=== PATIENT | female | born 1935 | race Caucasian/White ===

== ENCOUNTER 2019-01-19 21:08 | Inpatient (IN) | payer MEDICARE ==
[2019-01-19 21:23] LABS: Hemoglobin 14.3 g/dL (12.0-16.0); Mean Corpuscular HGB CONC 33.8 g/dL (32.0-36.0); Mean Corpuscular Hemoglobin 29.9 pg (27.0-31.0); Mean Corpuscular Volume 88.5 fL (78.0-98.0); Mean Platelet Volume 7.6 fL (7.4-10.4); Platelet Count 322 thou/uL (130-400); RBC Distribution Width 11.5 % (11.5-14.5); Red Blood Cell (RBC) Count 4.79 mill/uL (4.20-5.40); White Blood Cell (WBC) Count 16.8 thou/uL (4.8-10.8)
[2019-01-19] MEDS ORDERED: Adacel (T-DAP) 0.5 ML SYRINGE ONE (21:23)
[2019-01-19 21:28] LABS: PTT 26.1 SEC (22.9-36.1); Prothrombin Time 13.2 SEC (12.0-14.7)
--- NOTE | 2019-01-19 21:35 | CT ---
EXAM: Brain CT scan Without contrast: HISTORY: Injury from trauma COMPARISON: None FINDINGS: Atrophy and chronic white matter ischemic change. No focal mass or midline shift. No intra or extra-axial hemorrhage. The visualized sinuses and mastoids are clear of acute process. IMPRESSION: No mass or bleed or other significant acute intracranial process.
[2019-01-19 21:37] LABS: ALT (SGPT) 17 U/L (8-55); AST (SGOT) 17 U/L (5-34); Albumin 3.9 g/dL (3.4-4.8); Alcohol Less than 10 mg/dL (Less than 10); Alkaline Phosphatase 61 U/L (40-110); Anion Gap 16 mmol/L (10-20); BUN (Urea Nitrogen) 14 mg/dL (9.8-20.1); Bilirubin, Total 0.2 mg/dL (0.2-1.2); Calc. Creatinine Clearance 0 mL/min (70-130); Calcium 9.2 mg/dL (7.8-10.44); Carbon Dioxide 20 mmol/L (23-31); Chloride 105 mmol/L (98-107); Estimated GFR-MDRD 67; Globulin 2.8 g/dL (2.4-3.5); Glucose 190 mg/dL (83-110); Potassium 3.8 mmol/L (3.5-5.1); Protein, Total 6.7 g/dL (6.0-8.3); Sodium 137 mmol/L (136-145)
[2019-01-19 21:39] LABS: Eosinophils 3 % (0-10); Lymphocytes 42 % (21-51); MDiff Complete? YES; Monocytes 6 % (0-10); Neutrophil 43 % (42-75); Reactive Lymphocytes 6 % (0-10)
[2019-01-19] MEDS ORDERED: Fentanyl 100 MCG/2 ML VIAL ONE ×2 (21:41→22:16)
--- NOTE | 2019-01-19 21:42 | CT ---
EXAM: CT scan cervical spineWithout contrast: HISTORY: Injury from trauma COMPARISON: None FINDINGS: No evidence for acute fracture or facet dislocation. No significant malalignment. No prevertebral soft tissue swelling. Multilevel disc osteophytosis and facet arthrosis evidence for spondylosis. IMPRESSION: No evidence for acute fracture or facet dislocation or other significant acute process.
[2019-01-19] MEDS ORDERED: Lidocaine 2% w/Epinephrine 1:200K 20 ML VIAL ONE (21:46)
--- NOTE | 2019-01-19 21:55 | CT ---
EXAM: Chest abdomen and pelvic CT scanwith IV contrast: Thoracic spine CT scan,limitedwith IV contrast: Lumbar spine CT scan limitedwith IV contrast: HISTORY: Injury from trauma COMPARISON: None FINDINGS: Chest abdomen and pelvis CT: No pneumothorax or pleural effusion or pericardial effusion. Approximately 1 cm poorly defined groundglass opacity nodular density in the right apex probably does need to be followed. No mediastinal hematoma. The aorta appears unremarkable No evidence for confluent pneumonia or contusion. Liver:Unremarkable Gallbladder:Status post cholecystectomy. Pancreas:Calcifications evidence for chronic pancreatitis. Spleen:Unremarkable Kidneys:Unremarkable No intraperitoneal fluid or retroperitoneal hematoma. No evidence for acute fracture or dislocation. IMPRESSION: No evidence for acute posttraumatic process involving the chest, abdomen, and pelvis. Thoracic spine CT: IMPRESSION: No evidence for fracture, dislocation, or other significant acute process. Generalized spondylosis. Lumbar spine CT: No evidence for fracture, dislocation, or other significant acute process. Spondylosis with disc oste ophytosis at L4-L5 and L5-S1 with some associated canal stenosis. Findings of the brain CT, cervical spine CT scan, and chest abdomen and pelvic CT scans were discusse d with Dr. Palomo in the emergency room at 9:50 PM
--- NOTE | 2019-01-19 22:12 | RAD ---
Exam: Right foot 3 views: HISTORY: Comminuted fracture dislocation at the level the ankle. 2 internal fixation screws stabilize the medi al malleolus. Focal soft tissue swelling at the ankle as well as some minimal swelling over the calcaneal region. Arthrosis and degenerative changes of the foot proper. IMPRESSION: Comminuted fracture dislocation involving the ankle joint with malalignment and extensive soft tissue injury. Degenerative and osteophytic arthrosis changes of the foot proper.
[2019-01-19] MEDS ORDERED: Morphine 2 MG/ML SYRINGE SLOW IVP PRN (22:13)
[2019-01-19] MEDS ORDERED: Dextrose 50% Abboject 50 ML SYRINGE SLOW IVP PRN (22:13)
[2019-01-19] MEDS ORDERED: Dextrose 5% in Water 1,000 ML IV PRN (22:13)
[2019-01-19] MEDS ORDERED: Promethazine HCl 25 MG/ML VIAL IM/IV PRN (22:13)
[2019-01-19] MEDS ORDERED: Ondansetron PF 4 MG/2 ML Vial IVP PRN (22:13)
[2019-01-19] MEDS ORDERED: hydrALAZINE 20 MG/ML VIAL SLOW IVP PRN (22:13)
--- NOTE | 2019-01-19 22:14 | RAD ---
Right ankle 3 views: HISTORY: Injury FINDINGS: Comminuted fracture dislocation involving the medial and lateral malleolar regions with disruption of the ankle mortise and very extensive soft tissue injury. Displaced fracture of the medial malleolus despite 2 prior internal fixation screws. IMPRESSION: Very comminuted fracture-dislocation of the ankle with disruption of the ankle mortise with extensive soft tissue injury as above.
--- NOTE | 2019-01-19 22:15 | RAD ---
Exam: Right tibia and fibula 2 views: HISTORY: Injury from trauma Again noted are comminuted bimalleolar fracture dislocation at the ankle. The proximal tibia and fibu la and visualized knee show no acute process. IMPRESSION: Fracture dislocation at the ankle again noted. The more proximal tibia and fibula and visualized knee appear intact.
--- NOTE | 2019-01-19 22:16 | RAD ---
EXAM: Right shoulder 3 views: HISTORY: Injury from trauma COMPARISON: None FINDINGS: Bony demineralization. A C joint osteoarthrosis. Evidence for linear chronic changes in the right lung evidence visualized. Degenerative changes. No acute fracture or dislocation or other significant acute osseous abnormality. IMPRESSION: No significant acute process.
[2019-01-19] MEDS ORDERED: traMADol HCl 50 MG TAB PO PRN ×2 (22:17)
[2019-01-19] MEDS ORDERED: Cyclobenzaprine 10 MG TAB PO PRN (22:17)
[2019-01-19 22:21] LABS: Magnesium 1.7 mg/dL (1.6-2.6); Phosphorus 3.1 mg/dL (2.3-4.7)
--- NOTE | 2019-01-19 22:36 | HP ---
This is a level one trauma for "traumatic amputation." CHIEF COMPLAINT: Right ankle dislocation. HISTORY OF PRESENT ILLNESS: This is an 83-year-old female, who sustained an injury to her right ankle after stepping down off the step and placing her foot wrong. She did, according to the family, land face forward. No loss of consciousness. Complaining of pain at the scene. She was given ketamine en route and so presented with decreased neurologic status with an initial GCS of 11. After CT scans and the ketamine wore off, she has a GCS of 15, complaining of pain in her right foot as well as her right shoulder. Hemodynamically stable. MEDICAL HISTORY: She notes hypertension and hyperlipidemia. SURGICAL HISTORY: Right ankle and hysterectomy. MEDICATIONS: Medicines taken daily include, 1. Ambien. 2. An unknown hypertensive and unknown hyper-lipid drug. ALLERGIES: NO KNOWN DRUG ALLERGIES. SOCIAL HISTORY: No smoking, alcohol, or other drugs. REVIEW OF SYSTEMS: Otherwise negative. PHYSICAL EXAMINATION: VITAL SIGNS: Blood pressure 183/80, her pulse is 75, and respirations are 12. She is afebrile. NEUROLOGIC STATUS: She follows commands. Her GCS is 15. CRANIOFACIAL: There is no obvious deformity. There is small abrasion to chin. Pupils are 4 mm, reactive bilateral. No obvious orofacial trauma. C-collar is in place. There are no cervical bruits or ecchymoses. CHEST: Clear. HEART: Regular rate. ABDOMEN: Soft, nontender. PELVIS: Stable. EXTREMITIES: There are abrasions to the right shoulder, but no upper extremity deformity. There was an initial deformity at the right ankle. The ankle was reduced on presentation by Dr. Palomo. There were peripheral palpable pulses in the right and left feet. No obvious limb-threatening ischemia. There is an open wound to the medial right ankle. DIAGNOSTIC STUDIES: CT brain is negative. CT C-spine is negative for acute fracture or injury. CT chest, abdomen, and pelvis; no hemopneumothorax. CT abdomen and pelvis shows no obvious solid organ injury. No free fluid in the abdomen. ASSESSMENT: 1. Right ankle fracture dislocation, questionable open. 2. Right shoulder pain. Final x-rays pending. Neuro change on presentation due to ketamine completely resolved. PLAN: Dr. Clifford plans on taking to the operating room tonight. Trauma Team will admit and follow. Job ID: [id number]
[2019-01-19] MEDS ORDERED: Magnesium 2 GM/50 ML 2 GM in Premix Bag 1 BAG IVPB SCH (22:45)
[2019-01-19] MEDS ORDERED: Famotidine/PF 20 mg/2ml Vial ONE (22:47)
[2019-01-19] MEDS ORDERED: Potassium Phosphate 15 MMOL, Admixture Fee 1 EACH in Sodium Chloride 0.9% 100 ML IVPB SCH (23:00)
[2019-01-19] MEDS ORDERED: Acetaminophen 1,000 MG in Premix Bag 1 BAG IVPB SCH (23:59)
[2019-01-20] MEDS ORDERED: Fentanyl 100 MCG/2 ML VIAL ONE (00:29)
[2019-01-20] MEDS ORDERED: Promethazine HCl 25 MG/ML VIAL SLOW IVP PRN (00:38)
[2019-01-20] MEDS ORDERED: Promethazine HCl 25 MG/ML VIAL IM PRN ×2 (00:38→01:21)
[2019-01-20] MEDS ORDERED: Ondansetron HCl/PF 4 MG/2 ML Vial IVP PRN (00:38)
[2019-01-20] MEDS ORDERED: Lidocaine 1% PF 5 ML VIAL ONE (00:41)
[2019-01-20] MEDS ORDERED: Lidocaine 1% (PF) 30 ML VIAL ONE (00:41)
--- NOTE | 2019-01-20 00:43 | CON ---
DATE OF CONSULTATION: REASON FOR CONSULTATION: Right ankle injury. HISTORY OF PRESENT ILLNESS: She is a pleasant 83-year-old woman who presents after falling down her stairs and suffered an injury to her right ankle. She presents via EMS. PHYSICAL EXAMINATION: Today, she has a grade 3A open fracture of the medial malleolus. Lateral malleolus is fairly comminuted. The medial malleolus is fractured through retained hardware and there is posterior malleolar fragment as well. She has good cap refill in her toes. I am unable to palpate any pulses, however, there is a faint dopplerable dorsalis pedis pulse. DIAGNOSTIC DATA: Radiograph shows severely comminuted fracture of the medial and lateral malleolus, posterior malleolus, retained hardware irrigation and debridement, hardware removal, ORIF. The patient and family understand the severe risk of amputation in this case, risk of infection, stiffness, or blood vessel damage, need to remove hardware, which will be required because intramedullary pin will be required Job ID: [id number]
[2019-01-20] MEDS ORDERED: CEFAZOLIN 2 GM in Premix Bag 1 BAG IVPB SCH (00:45)
[2019-01-20] MEDS ORDERED: Ondansetron PF 4 MG/2 ML Vial IVP PRN (01:21)
[2019-01-20] MEDS ORDERED: HYDROcodone/Acetaminophen 5/325 mg Tablet PO PRN (01:21)
[2019-01-20] MEDS ORDERED: Zolpidem Tartrate 5 MG TAB PO PRN (01:21)
[2019-01-20] MEDS: Sodium Chloride 0.9% 1,000 ML IV SCH ×2 (03:08→15:01)
[2019-01-20] MEDS: Acetaminophen 1,000 MG in Premix Bag 1 BAG IVPB SCH ×3 (03:08→15:14)
[2019-01-20 03:44] VITALS: BMI 30.2
[2019-01-20] MEDS ORDERED: Dextrose 5% in Water 1,000 ML IV PRN (03:54)
[2019-01-20] MEDS ORDERED: Dextrose 50% Abboject 50 ML SYRINGE SLOW IVP PRN (03:54)
[2019-01-20] MEDS ORDERED: Insulin Regular 300 UNITS/3 ML VIAL SC PRN (03:54)
[2019-01-20] MEDS: Ropivacaine 500 MG/250 ML CADD NERVE BLCK SCH (06:33)
[2019-01-20] MEDS: Ibuprofen 600 MG TAB PO SCH ×3 (06:34→21:28)
[2019-01-20 06:47] LABS: #Lymphocytes 2.7 thou/uL (1.20-3.40); #Monocytes 1.1 thou/uL (0.11-0.59); #Neutrophils 14.2 thou/uL (1.40-6.50); %Basophils 0.1 % (0.0-1.0); %Eosinophils 0.2 % (0.0-10.0); %Monocytes 6.1 % (0.0-10.0); %Neutrophils 78.7 % (42.0-75.0); Hemoglobin 11.8 g/dL (12.0-16.0); Mean Corpuscular HGB CONC 33.4 g/dL (32.0-36.0); Mean Corpuscular Hemoglobin 29.6 pg (27.0-31.0); Mean Corpuscular Volume 88.7 fL (78.0-98.0); Mean Platelet Volume 7.7 fL (7.4-10.4); Platelet Count 266 thou/uL (130-400); RBC Distribution Width 11.5 % (11.5-14.5); Red Blood Cell (RBC) Count 3.99 mill/uL (4.20-5.40); White Blood Cell (WBC) Count 18.1 thou/uL (4.8-10.8)
[2019-01-20 07:19] LABS: Anion Gap 14 mmol/L (10-20); BUN (Urea Nitrogen) 12 mg/dL (9.8-20.1); Calc. Creatinine Clearance 70 mL/min (70-130); Calcium 8.5 mg/dL (7.8-10.44); Carbon Dioxide 23 mmol/L (23-31); Chloride 105 mmol/L (98-107); Estimated GFR-MDRD 74; Glucose 140 mg/dL (83-110); Magnesium 1.6 mg/dL (1.6-2.6); Potassium 4.1 mmol/L (3.5-5.1); Sodium 138 mmol/L (136-145)
--- NOTE | 2019-01-20 08:09 | RAD ---
Right ankle 2 views intraoperative fluoroscopy HISTORY: Fracture. FINDINGS: Intraoperative fluoroscopy was provided for internal fixation as performed by Dr. Clifford. S pot fluoroscopic images show a long compression screw transfixing the distal tibia to the talus to the calcaneus. Lack screws also transfix the medial and lateral malleoli. Anatomic alignment. Fluoros copy time 30 seconds.
[2019-01-20] MEDS: Polyethylene Glycol 3350 17 GM Packet PO SCH (08:22)
[2019-01-20] MEDS: Senokot S 8.6-50 MG TAB PO SCH ×2 (08:22→21:28)
[2019-01-20] MEDS ORDERED: Ondansetron PF 4 MG/2 ML Vial ONE (10:12)
[2019-01-20] MEDS: Magnesium 2 GM/50 ML 2 GM in Premix Bag 1 BAG IVPB SCH ×2 (11:27→15:09)
--- NOTE | 2019-01-20 11:33 | PRG ---
DATE OF SERVICE: 01/20/2019 SUBJECTIVE: Debi is an 83-year-old white female, postop day 1 from an open fracture dislocation of the right ankle. She is doing better this morning. Her pain is controlled and she has not been out of bed yet. OBJECTIVE: VITAL SIGNS: Temperature 97.5, pulse 68, respiratory rate 16, and blood pressure is 120/71. GENERAL: She is alert and oriented to person, place, time, situation, responses were appropriate with examiner. Grossly nonfocal. EXTREMITIES: Splints intact. No gross strike through was noted. She is neurovascularly intact in her toes with good digital excursion. IMPRESSION: 1. Advanced age. 2. An 83-year-old female, status post open reduction and internal fixation secondary to open fracture dislocation of the right ankle. PLAN: [place] swing bed consult has been placed and we will recheck tomorrow. Job ID: [id number]
--- NOTE | 2019-01-20 12:38 | PRG ---
DATE OF SERVICE: 01/20/2019 SUBJECTIVE: This is an 83-year-old female status post injury to her right ankle after stepping down off the step and placing her foot wrong. The patient is postop day #1 open reduction and internal fixation of right ankle fracture. The patient reports having a good appetite. The patient's pain is well controlled at this time. The patient has a nerve block in place currently. The patient does report some right shoulder discomfort and states that she previously had trouble with right shoulder before her fall. X-rays of her shoulder were negative. OBJECTIVE: VITAL SIGNS: Temperature 97.6, pulse 69, respirations 18, SpO2 of 95% on room air, blood pressure 130/61. GENERAL: Elderly female, well appearing, resting comfortably in bed, in no acute distress. RESPIRATORY: Equal chest rise and fall, no respiratory distress. CARDIAC: Regular rate, regular rhythm. No pedal edema. ABDOMEN: Soft nontender. EXTREMITIES: Right lower extremity in splint, clean, dry, and intact, nerve block in place, the patient is able to wiggle toes at this time. Distal radial pulses 2+ bilateral. LABORATORY DATA: WBC 18.1, RBC 3.99, hemoglobin 11.8, hematocrit 35.4. Sodium 138, potassium 4.1, chloride 105, BUN 12, creatinine 0.75, estimated GFR 74, glucose 140, calcium 8.5, phosphorus 4.0, magnesium 1.6. IMPRESSION: 1. Right ankle fracture, dislocation, possible open. 2. Right shoulder pain. 3. Postop day #1 open reduction and internal fixation of open fracture dislocation of the right ankle. PLAN: Continue comfort care and pain regimen. Have Physical and Occupational Therapy work with the patient today. Continue IV antibiotics per Orthopedic Surgery. Continue diabetic diet as tolerated. We will discontinue the patient' s Lemons catheter. A rehab screen has been placed. The plan was discussed with the patient's family , who agree. Job ID: [id number] [facility]
[2019-01-20] MEDS ORDERED: Ondansetron ODT 4 MG TAB PO PRN (15:20)
[2019-01-20] MEDS ORDERED: FLU VACC TS2019-20(65YR UP)/PF 180 MCG/0.5 ML SYRINGE IM ONE (21:00)
[2019-01-20] MEDS ORDERED: ZOLPIDEM TARTRATE PO SCH (21:00)
[2019-01-20] MEDS ORDERED: Acetaminophen 500 MG TAB PO SCH (21:00)
[2019-01-20] MEDS ORDERED: SIMVASTATIN PO SCH (21:00)
[2019-01-20] MEDS: Simvastatin 5 MG TAB PO SCH (21:28)
[2019-01-20] MEDS: Magnesium Oxide 400 MG TAB PO SCH (21:29)
[2019-01-20] MEDS: Zolpidem Tartrate 5 MG TAB PO SCH (21:29)
--- NOTE | 2019-01-20 22:55 | PRG ---
DATE OF SERVICE: 01/20/2019 SUBJECTIVE: The patient was seen this evening, lying in bed with no signs of acute distress. She reported her day went well and she was tolerating regular diet, voiding without difficulties. Pain was well controlled. OBJECTIVE: VITAL SIGNS: Temperature 98.3, pulse 70, respirations 16, oxygen saturation 95% on room air, and blood pressure 139/66. GENERAL: Well-appearing elderly female, sitting up in bed with no signs of acute distress. PULMONARY: Equal chest rise and fall, clear breath sounds bilaterally. No signs of acute respiratory distress. CARDIAC: Regular rate and rhythm. No murmurs, gallops, or rubs. GI: Abdomen is soft, nontender, nondistended. EXTREMITIES: 2+ pulses in all extremities. Gross motor and sensation are intact. Right lower extremity with splint that is clean, dry, and in place. There is also a nerve block to the right lower extremity. Toes of the right foot are pink with positive cap refill and are warm. NEUROLOGIC: GCS is 15. ASSESSMENT: 1. Status post mechanical fall from one step. 2. Right open ankle fracture dislocation, status post repair. 3. History of hypertension, diabetes, and hyperlipidemia. 4. Right shoulder pain, no fracture. PLAN: Continue patient's current diet and pain regimen. We will continue to work with Physical and Occupational Therapy. The patient reports she has previously tried to use crutches and a walker, but she is not able to hop. This will also be more difficult with the patient's right shoulder injury. She will likely be in a wheelchair and will need placement at SNF or rehab. A sling was ordered for right upper extremity. If pain persists, she will need MRI on an outpatient basis and followup. Job ID: [id number]
[2019-01-21 05:26] LABS: #Eosinphils 0.4 thou/uL (0.0-0.7); #Lymphocytes 2.7 thou/uL (1.20-3.40); #Monocytes 1.1 thou/uL (0.11-0.59); #Neutrophils 5.3 thou/uL (1.40-6.50); %Basophils 0.1 % (0.0-1.0); %Eosinophils 4.5 % (0.0-10.0); %Monocytes 11.5 % (0.0-10.0); %Neutrophils 55.9 % (42.0-75.0); Hemoglobin 10.5 g/dL (12.0-16.0); Mean Corpuscular Hemoglobin 29.8 pg (27.0-31.0); Mean Corpuscular Volume 87.7 fL (78.0-98.0); Mean Platelet Volume 7.9 fL (7.4-10.4); Platelet Count 236 thou/uL (130-400); RBC Distribution Width 11.5 % (11.5-14.5); White Blood Cell (WBC) Count 9.5 thou/uL (4.8-10.8)
[2019-01-21] MEDS: Acetaminophen 500 MG TAB PO SCH ×4 (05:44→23:25)
[2019-01-21] MEDS: Ibuprofen 600 MG TAB PO SCH ×3 (05:44→21:21)
[2019-01-21 05:59] LABS: Anion Gap 9 mmol/L (10-20); BUN (Urea Nitrogen) 13 mg/dL (9.8-20.1); Calc. Creatinine Clearance 68 mL/min (70-130); Calcium 8.9 mg/dL (7.8-10.44); Carbon Dioxide 28 mmol/L (23-31); Chloride 108 mmol/L (98-107); Estimated GFR-MDRD 72; Glucose 105 mg/dL (83-110); Magnesium 1.9 mg/dL (1.6-2.6); Phosphorus 3.5 mg/dL (2.3-4.7); Potassium 3.8 mmol/L (3.5-5.1); Sodium 141 mmol/L (136-145)
[2019-01-21] MEDS ORDERED: Non-Formulary Item 1 EACH (Amlodipine Besylate/Benazepril [Amlodipine Besylate/Benazepril PO SCH (09:00)
[2019-01-21] MEDS: Ferrous Sulfate 325 MG TAB PO SCH (10:00)
[2019-01-21] MEDS: Lisinopril 20 MG TAB PO SCH (10:01)
[2019-01-21] MEDS: Magnesium Oxide 400 MG TAB PO SCH ×2 (10:01→20:10)
[2019-01-21] MEDS: Senokot S 8.6-50 MG TAB PO SCH ×2 (10:01→20:10)
[2019-01-21] MEDS: Ascorbic Acid 500 mg Chewable Tablet PO SCH (10:01)
[2019-01-21] MEDS: Amlodipine 5 MG TAB PO SCH (10:02)
[2019-01-21] MEDS: Polyethylene Glycol 3350 17 GM Packet PO SCH (10:02)
--- NOTE | 2019-01-21 10:53 | PRG ---
DATE OF SERVICE: 01/21/2019 SUBJECTIVE: The patient is doing very well this morning. She states that she is in no pain. She is tolerating p.o. well without any nausea or vomiting. She is voiding without difficulty. She is passing gas, however, did not have a bowel movement since admission. She is in good spirits and eager for placement at [facility] once insurance has approved. Per nursing report, no acute events overnight. OBJECTIVE: VITAL SIGNS: T-max 98.3, heart rate 66, blood pressure 143/78, respiratory rate 18, and O2 saturation 95% on room air. GENERAL: Well-appearing elderly female, in no acute distress. A and O x3, in good spirits, sitting upright in bed. HEENT: Extraocular movements intact. Trachea midline. NECK: Supple. PULMONARY: Symmetric chest wall expansion bilaterally. Does have acute respiratory distress. No increased work of breathing. EXTREMITIES: Right lower extremity with splint that is clean, dry, and intact. Nerve block to the right lower extremity providing good pain relief. Toes of the right foot are pink and mobile. Sensation intact. ASSESSMENT: 1. Status post mechanical fall from one step. 2. Right open ankle fracture dislocation, status post repair postop day #2. 3. History of hypertension, diabetes, and hyperlipidemia. 4. Right shoulder pain. No fracture. PLAN: Plan will be to continue supportive care as well as the patient's diet and pain regimen. Pain is well controlled per the patient. We will continue to work with physical and occupational therapy as the patient awaits a bed placement at [facility] for continued therapies. Labs have remained stable. We will continue on bowel regimen. Case management consulted for placement, appreciate assistance. The patient was seen and examined by Dr. Lee on morning rounds. The above plan discussed with the patient, who voiced agreement and understanding of the plan and for placement at [facility] once insurance approval and bed available. Job ID: [id number] [facility]
--- NOTE | 2019-01-21 10:59 | OP ---
DATE OF PROCEDURE: 01/19/2019 PREOPERATIVE DIAGNOSES: Grade 3A open right ankle fracture, trimalleolar type with retained hardware. POSTOPERATIVE DIAGNOSES: Grade 3A open right ankle fracture, trimalleolar type with retained hardware. PROCEDURES PERFORMED: 1. Irrigation debridement of open fracture, skin, subcutaneous tissue, muscle and bone. 2. Hardware removal of the right ankle. 3. ORIF of the right trimalleolar fracture. ANESTHESIA: General. BLOOD LOSS: Minimal. SPECIMEN: None. DRAINS: None. COMPLICATION: None. DESCRIPTION OF PROCEDURE: After appropriate consent was signed, the patient was taken to the operating room where general anesthesia was induced. The right leg was prepped and draped in usual sterile fashion. I displaced the fracture completely and irrigated the joint. There were bone chips. There was really no significant gross contamination. I did remove devitalized tissue, muscle, bone and skin. After a copious amount of pulsatile lavage irrigation, I then reduced the fracture and pinned it with a fully threaded Steinmann pin and got a good anatomic reduction of the mortise joint. We checked this on biplane fluoroscopy. Once this was completed, I then performed ORIF of the medial malleolus using 3.5 cannulated screws and then I did a percutaneous lateral malleolus fixation with a single 4.0 screw just to act as a kickstand to prevent lateral displacement. Additional pulsatile irrigation was performed. I then closed subcutaneous tissue. I then repaired the joint capsule with #1 Vicryl. Subcutaneous tissue with 3-0 Vicryl and skin with 3-0 Prolene. Sterile dressing was applied. The patient was placed in a bulky posterior splint. Job ID: [id number]
[2019-01-21] MEDS: Ropivacaine 500 MG/250 ML CADD NERVE BLCK SCH (13:14)
[2019-01-21 14:34] LABS: Bilirubin Negative (Negative); Blood, Urine Negative (Negative); Clarity Clear (Clear); Glucose, Urine (Dipstick) Normal (Negative); Leukocyte 500 Leu/uL (Negative); Nitrite Negative (Negative); Protein, Urine (Dipstick) Negative (Neg-Trace); RBC/HPF 0-3 HPF (0-3); Transitional Epithelial 0-3 HPF (None Seen); Urobilinogen Normal mg/dL (Less than 2); WBC/HPF Greater than 50 HPF (0-3)
[2019-01-21] MEDS: Phenazopyridine HCl 97.5 MG TABLET PO SCH ×2 (14:42→20:10)
[2019-01-21 14:46] LABS: Bacteria/HPF 1+ HPF (None Seen)
[2019-01-21 14:49] LABS: Urine Culture Reflex No No
[2019-01-21] MEDS ORDERED: Cipro 250 MG TAB PO SCH (20:00)
[2019-01-21] MEDS: Aspirin 81 mg Enteric Coated Tablet PO SCH (20:09)
[2019-01-21] MEDS: Zolpidem Tartrate 5 MG TAB PO SCH (20:10)
[2019-01-21] MEDS: Simvastatin 5 MG TAB PO SCH (20:10)
[2019-01-21 23:53] LABS: Bacteria/HPF None Seen HPF (None Seen); Bilirubin Negative (Negative); Blood, Urine Negative (Negative); Clarity Clear (Clear); Glucose, Urine (Dipstick) Normal (Negative); Leukocyte 25 Leu/uL (Negative); Nitrite Negative (Negative); Protein, Urine (Dipstick) Negative (Neg-Trace); RBC/HPF 0-3 HPF (0-3); Squamous Epithelial None Seen HPF (0-3); Urobilinogen Normal mg/dL (Less than 2)
--- NOTE | 2019-01-22 00:49 | PRG ---
DATE OF SERVICE: 01/21/2019 SUBJECTIVE: Patient was seen this evening, lying in bed and resting comfortably. She reported pain was well controlled. She had dysuria earlier today, which has gotten better. OBJECTIVE: VITAL SIGNS: Temperature 97.7, pulse 62, respirations 18, oxygen saturation 96% on room air, blood pressure 157/70. GENERAL: Well-appearing elderly female, lying in bed with no signs of acute distress. PULMONARY: Equal chest rise and fall. Clear breath sounds bilaterally. No signs of acute respiratory distress. CARDIAC: Regular rate and rhythm. No murmurs, gallops, or rubs. GASTROINTESTINAL: Abdomen is soft, nontender, nondistended. EXTREMITIES: 2+ pulses in all extremities. Gross motor and sensation are intact. Splint to right lower extremity is clean, dry, and intact with no signs of infection. NEUROLOGIC: GCS is 15. ASSESSMENT: 1. Status post mechanical fall from one step. 2. Right open ankle fracture dislocation, status post repair. 3. History of hypertension, diabetes, and hyperlipidemia. PLAN: The patient's UA was repeated today due to a contaminated source. The repeat demonstrated the patient has in fact no urinary tract infection and so the Cipro was discontinued. We will continue physical and occupational therapy. She is pending rehab at this time. She would like to go to [place]. We will continue her current diet and pain regimen. Job ID: [id number]
[2019-01-22] MEDS: Ibuprofen 600 MG TAB PO SCH (06:37)
[2019-01-22] MEDS: Acetaminophen 500 MG TAB PO SCH (06:37)
[2019-01-22 07:43] VITALS: BP 144/75; TEMP 97.8
[2019-01-22] MEDS: Ascorbic Acid 500 mg Chewable Tablet PO SCH (08:25)
[2019-01-22] MEDS: Ferrous Sulfate 325 MG TAB PO SCH (08:25)
[2019-01-22] MEDS: Senokot S 8.6-50 MG TAB PO SCH (08:25)
[2019-01-22] MEDS: Lisinopril 20 MG TAB PO SCH (08:25)
[2019-01-22] MEDS: Aspirin 81 mg Enteric Coated Tablet PO SCH (08:25)
[2019-01-22] MEDS: Phenazopyridine HCl 97.5 MG TABLET PO SCH (08:25)
[2019-01-22] MEDS: Magnesium Oxide 400 MG TAB PO SCH (08:26)
[2019-01-22] MEDS: Amlodipine 5 MG TAB PO SCH (08:26)
[2019-01-22] MEDS: Polyethylene Glycol 3350 17 GM Packet PO SCH (08:27)
[2019-01-22] MEDS ORDERED: Cipro 250 MG TAB PO SCH (09:00)
--- NOTE | 2019-01-22 12:14 | DIS ---
DATE OF ADMISSION: 01/19/2019 DATE OF DISCHARGE: 01/22/2019 RESIDENT: Dave Rivera MD. DISCHARGE ATTENDING: Jarod Lee DO. CONSULTS: Dr. Clifford, Orthopedic Surgery. PROCEDURES: 1. Irrigation and debridement of open grade 3 right ankle fracture, skin, subcutaneous tissues, muscle and bone with hardware removal of right ankle and open reduction and internal fixation of the right trimalleolar fracture. 2. Shoulder x-ray on 01/19/2019, demonstrating no significant acute process. 3. Right tib-fib x-ray on 01/19/2019, demonstrating fracture dislocation at the ankle noted more proximal tibia and fibula and visualized knee appear intact. 4. Right foot x-ray on 01/19/2019, demonstrating comminuted fracture, dislocation involving the ankle joint with malalignment and extensive soft tissue injury, degenerative and osteophytic erosive changes of the foot in proper. 5. Right ankle x-ray on 01/19/2019, demonstrating very comminuted fracture dislocation of the ankle with destruction of the ankle mortise with extensive soft tissue injury as above. 6. Brain CT on 01/19/2019, demonstrating no mass or bleed or other significant acute intracranial process. 7. CT chest, abdomen, and pelvis CT on 01/19/2019, demonstrating no pneumothorax or pleural effusion. No pericardial effusion. Approximately 1 cm poorly defined ground-glass opacity nodular density in the right apex, probably does not need to be followed. No mediastinal hematoma. The aorta appears unremarkable. No evidence of confluent pneumonia or contusion. No evidence for acute posttraumatic process involving the chest, abdomen, or pelvis. No evidence of fracture, dislocation, or other significant acute process, generalized spondylosis. 8. Cervical spine CT on 01/19/2019, demonstrating no evidence of acute fracture or facet dislocation or other significant acute process. 9. Intraoperative fluoroscopy on 01/19/2019, demonstrates screws transfixed at the medial and lateral malleoli, anatomic alignment. PRIMARY DIAGNOSES: 1. Status post mechanical fall from one step. 2. Right, Grade 3 open ankle fracture dislocation of trimalleolar fracture, status post open reduction and internal fixation, postoperative day #3. SECONDARY DIAGNOSES: 1. Hypertension. 2. Diabetes. 3. Hyperlipidemia. 4. Right shoulder pain, no acute fracture. DISCHARGE MEDICATIONS: 1. Ambien 5 mg p.o. at bedtime. 2. Zocor 10 mg one tablet p.o. at bedtime. 3. Amlodipine-benazepril 5 mg/40 mg, one tablet p.o. daily. 4. Tylenol Extra Strength 500 mg two tablets p.o. q.6 hours. 5. Vitamin C 500 mg p.o. daily. 6. Aspirin 81 mg p.o. daily. 7. Ferrous sulfate 325 mg p.o. daily. 8. Ibuprofen 600 mg p.o. q.8 hours. 9. Magnesium oxide 400 mg p.o. b.i.d. 10. MiraLAX 17 g p.o. daily. 11. Senokot-S two tablets p.o. b.i.d. 12. Tramadol 50 mg p.o. q.6 hours p.r.n. x7 days. 13. Cipro 250 mg p.o. q.12 hours x5 days. DISCONTINUED MEDICATIONS: None. HISTORY OF PRESENT ILLNESS AND HOSPITAL COURSE: The patient is an 83-year-old female, who sustained injury of her right ankle after stepping down off a step and placing her foot wrong. According to family, she fell face forward. No loss of consciousness. Complained of pain at the scene. She was initially given ketamine en route to the hospital, and thus had some decreased neurologic status post medication; however, returned to a baseline of a GCS of 15 upon examination in the ED. She had CT scans as per above, that were within normal limits. She had x- rays of the right lower extremity that showed a right trimalleolar fracture. She was hemodynamically stable. She was then admitted for further evaluation and management and will be taken to the OR for open reduction and internal fixation. Dr. Clifford with Orthopedic Surgery took the patient in a stable condition to the OR for open reduction and internal fixation of right trimalleolar fracture. The patient tolerated the procedure well. No complications intraoperatively and was taken back to the floor in stable condition. Trauma Team admitted the patient and continued to follow throughout her hospitalization. Postoperatively, the patient did well. She was tolerating p.o. without significant nausea or vomiting. Her pain was well controlled with p.o. medications. A nerve block was in place to assist with pain. The patient did report some right shoulder discomfort and stated that she had previously had trouble with the shoulder prior to her fall, and an x-ray was obtained and negative as per above. The patient continued to work with Physical and Occupational Therapy to continue work on ambulation and functional status. The patient initially had a Lemons placed, this was removed postoperatively. The patient voided without difficulty. The patient did complain of dysuria on postop day number 2, thus a repeat UA was obtained. Repeat UA was negative; however, original urine culture did return positive for Pseudomonas on the morning of discharge, thus the patient was started on Cipro for UTI and discharged on a 5-day course. The patient's chronic medical conditions were controlled with her home medication regimen. The patient and family discussed that they would like to pursue swing bed at [facility] for continued inpatient therapy. Labs remained stable. The patient was continued on a bowel regimen. The patient was tolerating p.o. well. The patient's pain was well controlled. It was decided that the patient could be discharged safely to [facility] to continued therapy. Discharge plan was discussed with the patient's family at bedside, they voiced agreement and understanding of the discharge plan and followup with Orthopedic Surgery as directed as well as with the primary care physician within 1 week of discharge from [facility]. All questions were answered appropriately, and the patient was eager for discharge. DISPOSITION: Stable. DISCHARGE INSTRUCTIONS: 1. Location: [facility]. 2. Diet: Consistent carb, diabetic 3. Activity: Orthopedic limitation, right lower extremity, nonweightbearing. 4. Followup. The patient to follow up with orthopedic surgeon within 7 days of discharge. The patient should call for an appointment. The patient should also follow up with primary care physician within 7 days of discharge. Job ID: [id number] [facility]
[2019-01-23] MEDS ORDERED: Ascorbic Acid 500 mg Chewable Tablet PO SCH (08:00)
== END 2019-01-22 11:10 | disposition critical access hospital (66) | DRG 493 ==
LOC: ERS 21:08 → SDC/OP 23:06 → SURG A 23:08
PROVIDERS: ADMIT Orthopaedic Surgery; ATTEND Orthopaedic Surgery
PROC: 0QSJ04Z Reposition Right Fibula with Internal Fixation Device, Open Approach (ICD-10-PCS; principal; 2019-01-19)
PROC: 0QSG04Z Reposition Right Tibia with Internal Fixation Device, Open Approach (ICD-10-PCS; 2019-01-19)
DX: S82.851C Displaced trimalleolar fracture of right lower leg, initial encounter for open fracture type IIIA, IIIB, or IIIC (principal); N39.0 Urinary tract infection, site not specified; I10 Essential (primary) hypertension; E78.5 Hyperlipidemia, unspecified; W10.9XXA Fall (on) (from) unspecified stairs and steps, initial encounter; E11.9 Type 2 diabetes mellitus without complications; B96.5 Pseudomonas (aeruginosa) (mallei) (pseudomallei) as the cause of diseases classified elsewhere; Z90.710 Acquired absence of both cervix and uterus
CPT/HCPCS: 36415; 36416; 70450; 71260; 72125; 74177; 76000; 80048; 80053; 80307; 81001; 81015; 83605; 83735; 84100; 85025; 85610; 85730; 86850; 86900; 86901; 87077; 87086; 87186; 90471; 90662; 90715; G0008; G0390; J0131; J0690; J2001; J2405; J3010; J3475; J3490; S0028

== ENCOUNTER 2019-04-25 05:40 | Day surgery (SDC) | payer MEDICARE ==
[2019-04-24 10:34] VITALS: BMI 29.2
[2019-04-25] MEDS ORDERED: Famotidine/PF 20 mg/2ml Vial ONE (07:11)
[2019-04-25] MEDS ORDERED: Fentanyl 100 MCG/2 ML VIAL ONE (07:11)
[2019-04-25] MEDS ORDERED: Famotidine 20 MG TAB ONE (07:11)
[2019-04-25] MEDS ORDERED: Lidocaine 1% w/Epinephrine 1:100K 20 ML VIAL ONE (07:50)
--- NOTE | 2019-04-25 14:37 | OP ---
DATE OF PROCEDURE: 04/25/2019 PREOPERATIVE DIAGNOSIS: Painful hardware, right foot. POSTOPERATIVE DIAGNOSIS: Painful hardware, right foot. PROCEDURE PERFORMED: Hardware removal of intramedullary gisela, right tibia and calcaneus. CREATIVE COORDINATOR: Mitchell Ayala PA-C ESTIMATED BLOOD LOSS: Less than 100. SPECIMENS: None. DRAINS: None. COMPLICATIONS: None. DESCRIPTION OF PROCEDURE: The patient was taken to the operating room, where general anesthesia was induced. The left leg was prepped and draped in usual sterile fashion. The surgical site was infiltrated with lidocaine with epinephrine. A small incision was made. The pin was withdrawn without difficulty. Skin was closed with Monoderm. Sterile dressings applied. Job ID: [id number]
[2019-04-25] MEDS ORDERED: Lidocaine 1% PF 5 ML VIAL ONE (16:03)
[2019-04-25] MEDS ORDERED: Ondansetron PF 4 MG/2 ML Vial ONE (16:03)
[2019-04-25] MEDS ORDERED: ePHEDrine/0.9% NaCl/PF SYRINGE 50 mg/10 ml ONE (16:03)
[2019-04-25] MEDS ORDERED: PROPOFOL 200 MG/20 ML VIAL ONE (16:03)
[2019-04-25] MEDS ORDERED: Dexamethasone 20 MG/5 ML VIAL ONE (16:03)
== END 2019-04-25 10:41 | disposition home or self-care (01) ==
LOC: SDC 05:40
PROVIDERS: ATTEND Orthopaedic Surgery
PROC: 0QPG04Z Removal of Internal Fixation Device from Right Tibia, Open Approach (ICD-10-PCS; principal; 2019-04-25)
DX: T84.84XA Pain due to internal orthopedic prosthetic devices, implants and grafts, initial encounter (principal); I10 Essential (primary) hypertension; E78.5 Hyperlipidemia, unspecified; M19.90 Unspecified osteoarthritis, unspecified site; R73.03 Prediabetes; Z79.899 Other long term (current) drug therapy
CPT/HCPCS: J0690; J1100; J2001; J2405; J2704; J3010; S0028

== ENCOUNTER 2020-04-01 07:00 | Outpatient (CLI) | payer MEDICARE ==
[2020-04-01 14:34] LABS: #Eosinphils 0.2 10x3/uL (0.0-0.5); #Monocytes 0.9 10x3/uL (0.0-1.1); %Basophils 0.1 % (0.0-2.0); %Eosinophils 1.5 % (0.0-6.0); %Lymphocytes 36.8 % (18.0-47.0); %Monocytes 7.7 % (0.0-10.0); %Neutrophils 53.6 % (40.0-75.0); Hemoglobin 14.5 g/dL (12.0-16.0); Mean Corpuscular HGB CONC 32.2 G/DL (32.0-36.0); Mean Corpuscular Hemoglobin 28.8 PG (27.0-33.0); Mean Corpuscular Volume 89.5 fl (80.0-100.0); Mean Platelet Volume 10.5 fl (7.4-10.4); Platelet Count 338 10x3/uL (130-400); RBC Distribution Width 12.2 % (11.5-14.5); Red Blood Cell (RBC) Count 5.04 10x6/uL (3.90-5.20); White Blood Cell (WBC) Count 11.1 10x3/uL (4.5-11.0)
[2020-04-01 15:10] LABS: Anion Gap 16 mmol/L (10-20); BUN (Urea Nitrogen) 12 mg/dL (9.8-20.1); Calc. Creatinine Clearance 0 mL/min (70-130); Calcium 9.8 mg/dL (7.8-10.44); Carbon Dioxide 27 mmol/L (23-31); Chloride 103 mmol/L (98-107); Glucose 101 mg/dL (83-110); Sodium 141 mmol/L (136-145)
--- NOTE | 2020-04-01 20:35 | EKG ---
Test Reason : Blood Pressure : / mmHG Vent. Rate : 057 BPM Atrial Rate : 057 BPM P-R Int : 162 ms QRS Dur : 076 ms QT Int : 442 ms P-R-T Axes : 049 006 -02 degrees QTc Int : 430 ms Sinus bradycardia Abnormal ECG No previous ECGs available Confirmed by LIZY AUSTIN, DR. Brunson ([id number]) on 04/01/2020 8:34:53 PM Referred By: RASTA Confirmed By:DR. Boy MEDEL MD
[2020-04-02 02:42] LABS: SARS-CoV-2 MS2 Positive; SARS-CoV-2 N Gene Negative; SARS-CoV-2 S Gene Negative; SARS-CoV-2 by NAA Not Detected (NotDetected); SARS-CoV-2 orf1ab Negative
== END 2020-04-01 07:01 | disposition home or self-care (01) ==
LOC: LABBT 07:00
PROVIDERS: ATTEND Orthopaedic Surgery
DX: Z01.818 Encounter for other preprocedural examination (principal); Z20.828 Contact with and (suspected) exposure to other viral communicable diseases; M75.101 Unspecified rotator cuff tear or rupture of right shoulder, not specified as traumatic
CPT/HCPCS: 80048; 85025; 93005; U0003; 87635; 93010

== ENCOUNTER 2020-04-01 13:15 | Inpatient (IN) | payer MEDICARE ==
[2020-04-06] MEDS ORDERED: Sodium Chloride 0.9% 100 ML ONE (06:26)
[2020-04-06] MEDS ORDERED: Vancomycin 1 GM/200 ML BAG ONE (06:26)
[2020-04-06] MEDS ORDERED: Tranexamic Acid 1,000 MG/10 ML VIAL ONE (06:26)
[2020-04-06] MEDS ORDERED: Midazolam HCl 2 mg/2 ml Vial ONE (06:27)
[2020-04-06] MEDS ORDERED: Fentanyl 100 MCG/2 ML VIAL ONE (06:27)
[2020-04-06] MEDS ORDERED: Lidocaine 1% (PF) 30 ML VIAL ONE (06:29)
[2020-04-06] MEDS ORDERED: Lidocaine 2% Jelly 5 ML TUBE ONE (07:25)
[2020-04-06] MEDS ORDERED: Phenylephrine 10 MG/ML VIAL ONE (07:46)
[2020-04-06] MEDS ORDERED: Ropivacaine 0.2% 550 ML 550 ML NERVE BLCK SCH (08:15)
[2020-04-06] MEDS ORDERED: HYDROcodone/Acetaminophen 10/325 mg Tablet PO PRN ×4 (08:15→12:41)
[2020-04-06] MEDS ORDERED: Ondansetron PF 4 MG/2 ML Vial IVP PRN (08:15)
[2020-04-06] MEDS ORDERED: Ketorolac Tromethamine 30 MG/ML VIAL IVP PRN (08:15)
[2020-04-06] MEDS ORDERED: Promethazine HCl 25 MG/ML VIAL IM PRN ×2 (08:15→09:02)
[2020-04-06] MEDS ORDERED: Zolpidem Tartrate 5 MG TAB PO PRN (08:15)
[2020-04-06] MEDS ORDERED: traMADol HCl 50 MG TAB PO PRN ×2 (08:15)
[2020-04-06] MEDS ORDERED: Fentanyl 100 MCG/2 ML VIAL IV PRN (08:18)
[2020-04-06] MEDS ORDERED: SUGAMMADEX SODIUM 200 MG/2 ML VIAL ONE (08:47)
[2020-04-06] MEDS ORDERED: Ondansetron HCl/PF 4 MG/2 ML Vial IVP PRN (09:02)
[2020-04-06] MEDS ORDERED: Promethazine HCl 25 MG/ML VIAL SLOW IVP PRN (09:02)
--- NOTE | 2020-04-06 09:12 | OP ---
DATE OF PROCEDURE: 04/06/2020 PROCEDURE PERFORMED: Right reverse total shoulder arthroplasty using Akiko Tornier reverse total shoulder BioRSA stem, 2B flex tray, 0 mm high offset poly 36 mm + 6B. The glenoid is in R2 base plate with a standard 25 mm. GREY IRON MOLDER: Mary Angel PA-C BLOOD LOSS: 200. SPECIMEN: None. DRAINS: None. COMPLICATION: None. DESCRIPTION OF PROCEDURE: After appropriate consent was obtained, the patient was taken to the operating room, where general anesthetic was induced. She received preoperative antibiotics according to SCIP protocol, placed in a beach chair position. The deltopectoral approach was made. Dissection was carried down to the subscapularis tendon, which was tagged for later repair. There was no functioning rotator cuff. The humeral head was dislocated and cut using a cutting guide, prepared to appropriate stem size. A metaphyseal protector was applied. The glenoid was then exposed circumferentially, removed remains of the biceps tendon. The labrum tissue identified in the center of the glenoid. I drilled the center pilot captain hole and then reamed the glenoid to a flat surface, using a one-step reamer to create a trough for the Glenosphere. Appropriate base plate was then inserted with a good press-fit technique and screws were inserted with excellent security of the base plate to bone. When it appears deployed the screw was tightened without difficulty. Trials were performed. The appropriate metaphysis and polyethylene liner chosen. Shoulder was reduced, we confirmed stability. Trials were removed and irrigation performed. I drilled two holes through the metaphysis of the proximal humerus, placed cottony Dacron through these holes. The suture went around the actual implant to give extra stability. Implant was impacted into place. Shoulder was reduced. Subscapularis was repaired back to bone using 1 mm cottony Dacron tape. Irrigation was performed. Deltopectoral interval was closed with 0 Vicryl, subcu 2-0 Vicryl and skin was closed with ana. Sterile dressings applied. The physical therapy assistant instructor/co-surgeon was present through the entire procedure and was responsible for providing exposure, tissue retraction and any necessary limb or tissue manipulation required to obtain necessary reduction or hardware placement. The physical therapy assistant instructor/co-surgeon also provided bleeding control, tissue closure, and suturing in conjunction with the primary surgeon. Job ID: [id number]
[2020-04-06] MEDS ORDERED: ePHEDrine 50 MG/ML VIAL ONE (10:36)
[2020-04-06] MEDS ORDERED: Ondansetron PF 4 MG/2 ML Vial ONE (10:36)
[2020-04-06] MEDS ORDERED: Rocuronium Bromide 10 MG/ML (10ML VIAL) ONE (10:36)
[2020-04-06] MEDS ORDERED: PROPOFOL 200 MG/20 ML VIAL ONE (10:36)
[2020-04-06] MEDS ORDERED: Dexamethasone 20 MG/5 ML VIAL ONE (10:36)
[2020-04-06] MEDS ORDERED: Glycopyrrolate 0.2 MG/ML 5 ML SYRINGE ONE (10:36)
[2020-04-06] MEDS ORDERED: Ropivacaine 0.5% HCl/PF (150 MG/30 ML VIAL) ONE (10:38)
[2020-04-06] MEDS ORDERED: Ropivacaine 0.2% HCl/PF (40 MG/20 ML VIAL) ONE (10:38)
[2020-04-06] MEDS ORDERED: Aspirin 81 mg Enteric Coated Tablet PO SCH (12:45)
[2020-04-06] MEDS: Lactated Ringer's 1,000 ML IV SCH (13:32)
[2020-04-06] MEDS ORDERED: Acetaminophen 500 MG TAB ONE (13:40)
[2020-04-06] MEDS ORDERED: Aspirin Chewable 81 MG TAB ONE (13:41)
[2020-04-06] MEDS: Acetaminophen 500 MG TAB PO SCH ×3 (13:42→23:13)
[2020-04-06] MEDS: CEFAZOLIN 2 GM in Premix Bag 1 BAG IVPB SCH ×2 (14:07→23:12)
[2020-04-06] MEDS ORDERED: Vancomycin 1 GM in Premix Bag 1 BAG IVPB SCH (20:00)
[2020-04-06] MEDS ORDERED: Simvastatin 10 MG TAB PO SCH (21:00)
[2020-04-06] MEDS: Amlodipine 5 MG TAB PO SCH (23:25)
[2020-04-06] MEDS: Lisinopril 20 MG TAB PO SCH (23:25)
[2020-04-07 04:21] VITALS: BMI 24.7
[2020-04-07] MEDS: Lactated Ringer's 1,000 ML IV SCH (05:10)
[2020-04-07] MEDS: Acetaminophen 500 MG TAB PO SCH ×2 (05:34→13:09)
[2020-04-07] MEDS: Lisinopril 20 MG TAB PO SCH (08:30)
[2020-04-07] MEDS: Amlodipine 5 MG TAB PO SCH (08:31)
[2020-04-07 11:25] VITALS: BP 137/66; TEMP 97.8
== END 2020-04-07 14:40 | disposition home or self-care (01) | DRG 483 ==
LOC: SURG A 04-06 06:18 → SURG B 04-06 18:54
PROVIDERS: ADMIT Orthopaedic Surgery; ATTEND Orthopaedic Surgery
PROC: 0RRJ00Z Replacement of Right Shoulder Joint with Reverse Ball and Socket Synthetic Substitute, Open Approach (ICD-10-PCS; principal; 2020-04-06)
DX: M75.101 Unspecified rotator cuff tear or rupture of right shoulder, not specified as traumatic (principal); Z90.710 Acquired absence of both cervix and uterus; Z98.890 Other specified postprocedural states; I10 Essential (primary) hypertension; E78.5 Hyperlipidemia, unspecified; J30.2 Other seasonal allergic rhinitis; R73.03 Prediabetes; Z79.899 Other long term (current) drug therapy
CPT/HCPCS: A4306; C1713; C1776; J0690; J1100; J2001; J2250; J2370; J2405; J2704; J2795; J3010; J3370; J3490